=== PATIENT | male | born 1995 | race Hispanic/Latino ===

== ENCOUNTER 2018-10-03 07:16 | Emergency (ER) | payer OTHER ==
[2018-10-03] MEDS ORDERED: SODIUM CHLORIDE 0.9% 1000ML 1,000 ML IV ONE (07:41)
[2018-10-03] MEDS ORDERED: ONDANSETRON HCL 4 MG/2 ML VIAL ONE (07:42)
[2018-10-03] MEDS ORDERED: KETOROLAC TROMETHAMINE 30MG/ML ONE (07:42)
[2018-10-03 07:52] LABS: BASOPHILS % (AUTO) 0.5 % (0.0-5.0); EOSINOPHILS % (AUTO) 1.6 % (0.0-8.0); HEMATOCRIT 41.2 % (42-54); LYMPHOCYTES % (AUTO) 20.4 % (21.0-51.0); MEAN CORPUSCULAR HEMOGLOBIN 30.4 pg (27.0-33.0); MEAN CORPUSCULAR HGB CONC 34.8 g/dL (32.0-36.0); MEAN CORPUSCULAR VOLUME 87.4 fL (79-99); MONOCYTES % (AUTO) 11.7 % (3.0-13.0); NEUTROPHILS % (AUTO) 65.8 % (40.0-77.0); PLATELET COUNT (AUTO) 221 K/uL (130-400); RED BLOOD CELL COUNT(AUTO) 4.72 MIL/uL (4.50-6.20); RED CELL DISTRIBUTION WIDTH 12.7 % (11.0-15.5); WHITE BLOOD COUNT (AUTO) 6.9 K/uL (4.8-10.8)
[2018-10-03 08:01] LABS: CREATININE 1.1 mg/dL (0.5-1.5); POTASSIUM 3.6 mmol/L (3.5-5.1)
[2018-10-03 08:06] LABS: ALBUMIN 3.4 g/dL (3.5-5.0); BILIRUBIN,TOTAL 0.3 mg/dL (0.2-1.0); TOTAL PROTEIN, SERUM 6.9 g/dL (6.0-8.3)
[2018-10-03 08:53] LABS: AMPHET/METH SCREEN,URINE NEGATIVE (NEGATIVE); BARBITURATE SCREEN, URINE NEGATIVE (NEGATIVE); BENZODIAZEPINES SCREEN,URINE NEGATIVE (NEGATIVE); CANNABINOID SCREEN,URINE NEGATIVE (NEGATIVE); COCAINE SCREEN,URINE POSITIVE (NEGATIVE); OPIATE SCREEN,URINE NEGATIVE (NEGATIVE); PHENCYCLIDINE SCREEN,URINE NEGATIVE (NEGATIVE)
== END 2018-10-03 09:28 | disposition home or self-care (01) ==
LOC: EDH 07:16
DX: F14.10 Cocaine abuse, uncomplicated (principal); R11.2 Nausea with vomiting, unspecified; R19.7 Diarrhea, unspecified; J45.909 Unspecified asthma, uncomplicated; Z90.49 Acquired absence of other specified parts of digestive tract; Z72.0 Tobacco use
CPT/HCPCS: 36415; 80053; 80305; 82550; 85025; 96361; 96374; 96375; 99284; J1885; J2405; J7030

== ENCOUNTER 2018-12-21 05:51 | Emergency (ER) | payer OTHER ==
[2018-12-21] MEDS ORDERED: SODIUM CHLORIDE 0.9% 1000ML 1,000 ML IV ONE (06:02)
[2018-12-21] MEDS ORDERED: LACTATED RINGERS 1000ML 2,000 ML IV ONE (06:12)
[2018-12-21] MEDS ORDERED: IOHEXOL 350 MG/ML 100ML INFUS..BTL IV ONE (06:14)
[2018-12-21 06:19] LABS: BASOPHILS % (AUTO) 0.7 % (0.0-5.0); HEMATOCRIT 44.9 % (42-54); LYMPHOCYTES % (AUTO) 24.5 % (21.0-51.0); MEAN CORPUSCULAR VOLUME 88.5 fL (79-99); MONOCYTES % (AUTO) 6.4 % (3.0-13.0); NEUTROPHILS % (AUTO) 64.4 % (40.0-77.0); PLATELET COUNT (AUTO) 257 K/uL (130-400); RED BLOOD CELL COUNT(AUTO) 5.08 MIL/uL (4.50-6.20); RED CELL DISTRIBUTION WIDTH 13.9 % (11.0-15.5); WHITE BLOOD COUNT (AUTO) 7.1 K/uL (4.8-10.8)
[2018-12-21 06:26] LABS: POTASSIUM 3.8 mmol/L (3.5-5.1)
[2018-12-21 06:27] LABS: INR 0.99 (0.85-1.15); PARTIAL THROMBOPLASTIN TIME 25.8 SEC (26.3-35.5); PROTHROMBIN TIME 10.4 SEC (9.6-11.6)
[2018-12-21 06:29] LABS: BILIRUBIN,TOTAL 0.4 mg/dL (0.2-1.0); TOTAL PROTEIN, SERUM 7.5 g/dL (6.0-8.3)
[2018-12-21 07:08] LABS: AMPHET/METH SCREEN,URINE NEGATIVE (NEGATIVE); APPEARANCE,URINE CLEAR (CLEAR); BARBITURATE SCREEN, URINE NEGATIVE (NEGATIVE); BENZODIAZEPINES SCREEN,URINE NEGATIVE (NEGATIVE); BILIRUBIN,URINE NEGATIVE (NEGATIVE); CANNABINOID SCREEN,URINE NEGATIVE (NEGATIVE); COCAINE SCREEN,URINE NEGATIVE (NEGATIVE); COLOR,URINE YELLOW (YELLOW); GLUCOSE, URINE (UA) NEGATIVE (NEGATIVE); KETONES,URINE NEGATIVE (NEGATIVE); LEUKOCYTE ESTERASE ,URINE NEGATIVE (NEGATIVE); NITRATE,URINE NEGATIVE (NEGATIVE); OCCULT BLOOD,URINE NEGATIVE (NEGATIVE); OPIATE SCREEN,URINE NEGATIVE (NEGATIVE); PHENCYCLIDINE SCREEN,URINE NEGATIVE (NEGATIVE); PROTEIN,URINE NEGATIVE (NEGATIVE); UROBILINOGEN,URINE 0.2 mg/dL (0.2-1.0)
[2018-12-21] MEDS ORDERED: TETANUS/DIPHTHERIA TOXOID [ADULT] 0.5 ML VIAL IM ONE (07:09)
== END 2018-12-21 08:11 | disposition home or self-care (01) ==
LOC: EDH 05:51
DX: S16.1XXA Strain of muscle, fascia and tendon at neck level, initial encounter (principal); S20.219A Contusion of unspecified front wall of thorax, initial encounter; S20.229A Contusion of unspecified back wall of thorax, initial encounter; F10.129 Alcohol abuse with intoxication, unspecified; J45.909 Unspecified asthma, uncomplicated; Z90.49 Acquired absence of other specified parts of digestive tract; Z72.0 Tobacco use; Y90.9 Presence of alcohol in blood, level not specified; V89.2XXA Person injured in unspecified motor-vehicle accident, traffic, initial encounter; Y93.89 Activity, other specified; Y92.410 Unspecified street and highway as the place of occurrence of the external cause; Y99.8 Other external cause status
CPT/HCPCS: 36415; 70450; 71045; 71260; 72125; 74177; 80053; 80305; 81003; 82550; 83690; 84484; 85025; 85610; 85730; 86850; 86900; 86901; 90471; 90714; 93005; 99285; G0480; J7030; J7120; Q9967

== ENCOUNTER 2022-07-05 23:21 | Emergency (ER) | payer OTHER ==
[~2022-07-05] VITALS: Ht 180.3 cm; Wt 87.1 kg
[2022-07-05 23:24] VITALS: BP 107/69
[2022-07-06] MEDS ORDERED: IBUP-2070 PO (00:17)
== END 2022-07-06 00:28 | disposition home or self-care (01) ==
LOC: EDH 23:21
DX: M25.512 Pain in left shoulder (principal)
CPT/HCPCS: 73030